=== PATIENT | male | born 1975 | race Caucasian/White ===

== ENCOUNTER 2021-09-30 10:08 | Emergency (ER) | payer OTHER ==
[~2021-09-30] VITALS: Ht 167.6 cm; Wt 77.1 kg
[2021-09-30] MEDS ORDERED: TAMS0.4C (10:45)
[2021-09-30] MEDS ORDERED: NAPROXEN500 MG (10:46)
[2021-09-30] MEDS ORDERED: TAMS0.4C PO (14:57)
[2021-09-30] MEDS ORDERED: ULTRAM50 MG PO (14:57)
[2021-09-30] MEDS ORDERED: DICLOFENAC POTA50 MG PO (14:57)
[2021-09-30] MEDS ORDERED: STONEX PO (14:57)
== END 2021-09-30 15:36 ==
LOC: ER 10:08
DX: N13.2 Hydronephrosis with renal and ureteral calculous obstruction (principal); K57.30 Diverticulosis of large intestine without perforation or abscess without bleeding